=== PATIENT | male | born 1955 | race Caucasian/White ===

== ENCOUNTER 2016-09-09 16:57 | Inpatient (IN) | payer BC, OTHER ==
[~2016-09-09] VITALS: Ht 182.9 cm; Wt 94.3 kg
[~2016-09-09 16:57] MED LIST: AMLO1TAB12 PO; CALC-192 PO; FOLI-17 PO; HYDR200T PO; METH2.5T PO; OXYC-302 PO; [UNRECOGNIZED DRUG - OTHER] INJ
[2016-09-09] MEDS ORDERED: ONDANSETRON 2MG/ML, 2ML IVPush ONE (17:30)
[2016-09-09 17:43] LABS: ASPARTATE AMINO TRANSFERASE 15 U/L (15-37); BLOOD UREA NITROGEN 18 mg/dL (7-18)
[2016-09-09] MEDS ORDERED: SODIUM CHLORIDE FLUSH 10ML SYR IVF ONE (18:00)
[2016-09-09] MEDS ORDERED: MORPHINE SULFATE 4 MG/ML, 1ML ONE ×2 (18:24→20:55)
[2016-09-09] MEDS ORDERED: ONDANSETRON 2MG/ML, 2ML ONE ×2 (18:25→20:52)
[2016-09-09] MEDS: MORPHINE SULFATE 4 MG/ML, 1ML IVPush PRN ×2 (18:27→20:58)
[2016-09-09] MEDS ORDERED: OMNIPAQUE 350 MG/ML, 100ML BOTTLE ONE (20:50)
[2016-09-09] MEDS ORDERED: OMEG1CAP23 PO (21:30)
[2016-09-09] MEDS ORDERED: ATOR40TA PO (21:30)
[2016-09-09] MEDS ORDERED: ASPI-496 PO (21:30)
[2016-09-09] MEDS ORDERED: CHOL2000 PO (21:30)
[2016-09-09] MEDS ORDERED: GLYB2.5T2 PO (21:30)
[2016-09-09] MEDS ORDERED: METF100010 PO (21:30)
[2016-09-09] MEDS ORDERED: MELA3TAB37 PO (21:30)
[2016-09-09] MEDS ORDERED: TRAZ50TA18 PO (21:30)
[2016-09-09] MEDS ORDERED: SODIUM CHLORIDE 0.9% 1,000 ML IV ONE (21:42)
[2016-09-09] MEDS ORDERED: SODIUM CHLORIDE FLUSH 10ML SYR IVF PRN (22:00)
[2016-09-09] MEDS: SODIUM CHLORIDE 0.9% 1,000 ML IV SCH (22:53)
[2016-09-09] MEDS ORDERED: BISACODYL 10 MG SUPP PR PRN (23:00)
[2016-09-09] MEDS ORDERED: ENBREL 50 MG INJ SCH (23:00)
[2016-09-09] MEDS ORDERED: ONDANSETRON 2MG/ML, 2ML IVPush PRN (23:00)
[2016-09-09] MEDS ORDERED: NICOTINE 14MG/24 HR PATCH.TD24 TD SCH (23:00)
[2016-09-09 23:11] VITALS: BP 127/73
[2016-09-09] MEDS: HEPARIN 5,000 UNITS/ML, 1ML SQ SCH (23:40)
[2016-09-10] MEDS: morphine SULFATE 10 MG/ML, 1ML IVPush PRN ×3 (00:03→07:12)
[2016-09-10 04:10] VITALS: BP 122/76
[2016-09-10 05:08] LABS: ASPARTATE AMINO TRANSFERASE 14 U/L (15-37); BLOOD UREA NITROGEN 14 mg/dL (7-18)
[2016-09-10] MEDS: INSULIN ASPART 100 UNITS/ML, PEN SQ-INSULIN SCH ×3 (06:00→12:00)
[2016-09-10] MEDS: SODIUM CHLORIDE 0.9% 1,000 ML IV SCH ×2 (06:06→12:40)
[2016-09-10 06:41] VITALS: BP 99/61
[2016-09-10] MEDS: HEPARIN 5,000 UNITS/ML, 1ML SQ SCH ×2 (07:14→14:42)
[2016-09-10] MEDS ORDERED: HYDROcodone/APAP 5/325 TABLET PO PRN (09:00)
[2016-09-10 14:09] VITALS: BP 111/57
== END 2016-09-10 17:15 | disposition home or self-care (01) | DRG 439 ==
LOC: ED 21:17 → EDIP 21:42 → 3NE 22:57
PROVIDERS: ADMIT Internal Medicine; ATTEND Internal Medicine
DX: K85.90 Acute pancreatitis without necrosis or infection, unspecified (principal); K86.3 Pseudocyst of pancreas; I31.9 Disease of pericardium, unspecified; M06.9 Rheumatoid arthritis, unspecified; E11.9 Type 2 diabetes mellitus without complications; I10 Essential (primary) hypertension; G47.33 Obstructive sleep apnea (adult) (pediatric); J44.9 Chronic obstructive pulmonary disease, unspecified; R16.1 Splenomegaly, not elsewhere classified; D73.5 Infarction of spleen; F10.21 Alcohol dependence, in remission; F17.210 Nicotine dependence, cigarettes, uncomplicated; Z79.82 Long term (current) use of aspirin; Z79.899 Other long term (current) drug therapy; Z82.49 Family history of ischemic heart disease and other diseases of the circulatory system; Z79.84 Long term (current) use of oral hypoglycemic drugs; Z83.3 Family history of diabetes mellitus
CPT/HCPCS: 36415; 74177; 76700; 80053; 80061; 82962; 83690; 85025; 93005; 96374; 96375; 96376; J1644; J2405; Q9967; J2270; J7030

== ENCOUNTER 2016-09-30 10:03 | Emergency (ER) | payer BC ==
[~2016-09-30] VITALS: Ht 180.3 cm; Wt 91.0 kg
[~2016-09-30 10:03] MED LIST changes: +ASPI-496 PO; +ATOR40TA PO; +CHOL2000 PO; +GLYB2.5T2 PO; +MELA3TAB37 PO; +METF100010 PO; +OMEG1CAP23 PO; +TRAZ50TA18 PO
[2016-09-30] MEDS ORDERED: ONDANSETRON 2MG/ML, 2ML IVPush ONE (11:00)
[2016-09-30] MEDS ORDERED: SODIUM CHLORIDE FLUSH 10ML SYR IVF ONE (11:00)
[2016-09-30] MEDS ORDERED: SODIUM CHLORIDE 0.9% 1,000ML IVBOLUS ONE (11:00)
[2016-09-30] MEDS ORDERED: ONDANSETRON 2MG/ML, 2ML ONE (11:09)
[2016-09-30] MEDS ORDERED: HYDROmorphone 1 MG/ML, 1ML ONE ×2 (11:09→12:45)
[2016-09-30] MEDS: HYDROmorphone 1 MG/ML, 1ML IVPush PRN ×2 (11:22→12:50)
[2016-09-30 11:28] LABS: ASPARTATE AMINO TRANSFERASE 18 U/L (15-37); BLOOD UREA NITROGEN 27 mg/dL (7-18)
[2016-09-30] MEDS ORDERED: OMNIPAQUE 350 MG/ML, 100ML BOTTLE ONE (12:10)
[2016-09-30 13:18] VITALS: BP 125/73
== END 2016-09-30 13:39 | disposition home or self-care (01) ==
LOC: ED 10:28
DX: K85.90 Acute pancreatitis without necrosis or infection, unspecified (principal); K86.3 Pseudocyst of pancreas; J44.9 Chronic obstructive pulmonary disease, unspecified; E11.9 Type 2 diabetes mellitus without complications; E78.5 Hyperlipidemia, unspecified; E87.1 Hypo-osmolality and hyponatremia; M06.9 Rheumatoid arthritis, unspecified; Z87.891 Personal history of nicotine dependence
CPT/HCPCS: 36415; 74177; 80053; 83690; 85025; 85610; 93005; 96361; 96374; 96375; 96376; 99285; J1170; J2405; J7030; Q9967

== ENCOUNTER → 2016-10-14 | Outpatient (CLI) | payer BC ==
[~2016-10-14] MED LIST changes: +5-HY100C PO; +CETI-158 PO; +GABA PO; +GLUT500T3 PO; +IBUP-1 PO; +KETO10DR5 EACHEYE; +TRYP500T PO
[2016-10-14 09:42] LABS: BLOOD UREA NITROGEN 19 mg/dL (7-18)
[2016-10-14 09:46] LABS: ASPARTATE AMINO TRANSFERASE 16 U/L (15-37)
== END | disposition home or self-care (01) ==
LOC: STAR 08:16
PROVIDERS: ATTEND Internal Medicine Gastroenterology
DX: Z01.818 Encounter for other preprocedural examination (principal); K85.90 Acute pancreatitis without necrosis or infection, unspecified; K86.3 Pseudocyst of pancreas; K86.2 Cyst of pancreas
CPT/HCPCS: 36415; 80053

== ENCOUNTER 2016-10-22 06:27 | Day surgery (SDC) | payer BC ==
[~2016-10-22] VITALS: Ht 180.3 cm; Wt 88.6 kg
[~2016-10-22 06:27] MED LIST changes: -5-HY100C PO; +5-HY100C3 PO; -IBUP-1 PO; +IBUP-11 PO; -MELA3TAB37 PO; +MELA3TAB62 PO
[2016-10-22] MEDS ORDERED: LIDOCAINE 1%, 2ML ONE (07:16)
[2016-10-22 07:20] VITALS: BP 113/72
[2016-10-22] MEDS ORDERED: LACTATED RINGERS 1,000 ML IV SCH (07:32)
[2016-10-22] MEDS ORDERED: LIDOCAINE 1%, 2ML SQ PRN (08:00)
[2016-10-22] MEDS ORDERED: PIPERACILLIN/TAZO/PMX 3.375GM 50 ML ONE (08:05)
[2016-10-22] MEDS ORDERED: CHLORHEXIDINE MOUTHWASH 15 ML UDC ONE (08:07)
[2016-10-22] MEDS ORDERED: FENTANYL PF 100 MCG/2ML ONE (08:22)
[2016-10-22] MEDS ORDERED: MIDAZOLAM 1 MG/ML, 2ML ONE (08:29)
[2016-10-22] MEDS ORDERED: SUCCINYLCHOLINE 20 MG/ML, 10ML ONE (08:37)
[2016-10-22] MEDS ORDERED: DEXAMETHASONE 4 MG/ML, 1ML ONE (08:37)
[2016-10-22] MEDS ORDERED: ONDANSETRON 2MG/ML, 2ML ONE (08:37)
[2016-10-22] MEDS ORDERED: PROPOFOL 10 MG/ML, 20ML ONE ×2 (08:37)
== END 2016-10-22 11:30 ==
LOC: OUT 06:27
PROVIDERS: ATTEND Internal Medicine Gastroenterology
DX: K85.90 Acute pancreatitis without necrosis or infection, unspecified (principal); K86.1 Other chronic pancreatitis; K86.2 Cyst of pancreas; K44.9 Diaphragmatic hernia without obstruction or gangrene; J44.9 Chronic obstructive pulmonary disease, unspecified; I10 Essential (primary) hypertension; Z87.39 Personal history of other diseases of the musculoskeletal system and connective tissue; Z98.890 Other specified postprocedural states; Z79.82 Long term (current) use of aspirin; Z72.89 Other problems related to lifestyle; Z87.891 Personal history of nicotine dependence
CPT/HCPCS: 43239; 43242; 82962; 88172; 88173; 88305; 88307; J0330; J1100; J2250; J2405; J2543; J2704; J3010; J3490; J7120

== ENCOUNTER 2016-10-26 09:59 | Emergency (ER) | payer BC ==
[~2016-10-26] VITALS: Ht 180.3 cm; Wt 89.0 kg
[2016-10-26] MEDS ORDERED: SODIUM CHLORIDE 0.9% 1,000 ML IV ONE (10:24)
[2016-10-26] MEDS ORDERED: SODIUM CHLORIDE FLUSH 10ML SYR IVF ONE (10:30)
[2016-10-26] MEDS ORDERED: ONDANSETRON 2MG/ML, 2ML IVPush ONE (10:30)
[2016-10-26] MEDS ORDERED: HYDROmorphone 1 MG/ML, 1ML IVPush PRN (10:30)
[2016-10-26 10:44] LABS: HEMATOCRIT 46.2 % (39.2-51.8); HEMOGLOBIN 15.2 g/dL (13.7-18.0); WHITE BLOOD COUNT 10.3 x10^3/uL (3.4-10)
[2016-10-26 10:57] LABS: ASPARTATE AMINO TRANSFERASE 13 U/L (15-37); BLOOD UREA NITROGEN 18 mg/dL (7-18)
[2016-10-26] MEDS ORDERED: ONDANSETRON 2MG/ML, 2ML ONE (11:04)
[2016-10-26] MEDS ORDERED: HYDROmorphone 1 MG/ML, 1ML ONE (11:04)
[2016-10-26 12:14] VITALS: BP 123/74
[2016-10-27] MEDS ORDERED: OXYC1TAB7 PO (15:00)
== END 2016-10-26 13:03 | disposition home or self-care (01) ==
LOC: ED 10:23
DX: R10.33 Periumbilical pain (principal); K85.90 Acute pancreatitis without necrosis or infection, unspecified; E11.9 Type 2 diabetes mellitus without complications; E78.5 Hyperlipidemia, unspecified; J44.9 Chronic obstructive pulmonary disease, unspecified; M06.9 Rheumatoid arthritis, unspecified
CPT/HCPCS: 36415; 74020; 80053; 83690; 85025; 85610; 85730; 96361; 96374; 96375; 99285; J1170; J2405; J7030

== ENCOUNTER 2016-10-27 11:34 | Inpatient (IN) | payer BC ==
[~2016-10-27] VITALS: Ht 180.3 cm; Wt 98.2 kg
[2016-10-27] MEDS: LACTATED RINGERS 1,000 ML IV SCH ×3 (01:43→23:20)
[2016-10-27] MEDS ORDERED: HYDROmorphone 1 MG/ML, 1ML ONE ×3 (12:11→14:52)
[2016-10-27] MEDS ORDERED: ONDANSETRON 2MG/ML, 2ML ONE (12:12)
[2016-10-27] MEDS: HYDROmorphone 1 MG/ML, 1ML IVPush PRN ×2 (12:19→12:46)
[2016-10-27] MEDS ORDERED: SODIUM CHLORIDE FLUSH 10ML SYR IVF ONE (12:30)
[2016-10-27] MEDS ORDERED: ONDANSETRON 2MG/ML, 2ML IVPush ONE (12:30)
[2016-10-27] MEDS ORDERED: SODIUM CHLORIDE 0.9% 1,000ML IVBOLUS ONE (12:30)
[2016-10-27 12:39] LABS: HEMATOCRIT 42.7 % (39.2-51.8); WHITE BLOOD COUNT 9.9 x10^3/uL (3.4-10)
[2016-10-27 13:11] LABS: ASPARTATE AMINO TRANSFERASE 11 U/L (15-37); BLOOD UREA NITROGEN 14 mg/dL (7-18)
[2016-10-27] MEDS ORDERED: OMNIPAQUE 350 MG/ML, 100ML BOTTLE ONE (13:56)
[2016-10-27] MEDS ORDERED: HYDROmorphone 1 MG/ML, 1ML IV STA (14:47)
[2016-10-27] MEDS ORDERED: OXYC1TAB7 PO (15:00)
[2016-10-27] MEDS ORDERED: BISACODYL 10 MG SUPP PR PRN (15:30)
[2016-10-27] MEDS ORDERED: LABETALOL 5MG/ML, 20ML IVPush PRN (15:30)
[2016-10-27] MEDS ORDERED: morphine SULFATE 10 MG/ML, 1ML ONE (16:30)
[2016-10-27] MEDS: morphine SULFATE 10 MG/ML, 1ML IVPush PRN ×2 (16:35→20:27)
[2016-10-27 17:24] VITALS: BP 141/76
[2016-10-27 19:47] VITALS: BP 145/80
[2016-10-27] MEDS: NICOTINE 14MG/24 HR PATCH.TD24 TD SCH (22:00)
[2016-10-28] MEDS: morphine SULFATE 10 MG/ML, 1ML IVPush PRN ×8 (00:20→23:11)
[2016-10-28 07:30] VITALS: BP 112/71
[2016-10-28 08:19] LABS: ASPARTATE AMINO TRANSFERASE 11 U/L (15-37); BLOOD UREA NITROGEN 9 mg/dL (7-18)
[2016-10-28 08:24] LABS: HEMATOCRIT 42.9 % (39.2-51.8); HEMOGLOBIN 14.1 g/dL (13.7-18.0); WHITE BLOOD COUNT 10.5 x10^3/uL (3.4-10)
[2016-10-28] MEDS: LACTATED RINGERS 1,000 ML IV SCH ×2 (09:57→17:03)
[2016-10-28] MEDS: KETOROLAC 30 MG/1 ML IVPush SCH ×2 (11:47→18:25)
[2016-10-28 13:07] VITALS: BP 107/66
[2016-10-28] MEDS: ENOXAPARIN 40 MG/0.4 ML SQ SCH (13:54)
[2016-10-28 20:10] VITALS: BP 119/68
[2016-10-28] MEDS: NICOTINE 14MG/24 HR PATCH.TD24 TD SCH (20:10)
[2016-10-29] MEDS: KETOROLAC 30 MG/1 ML IVPush SCH ×4 (00:22→17:35)
[2016-10-29] MEDS: LACTATED RINGERS 1,000 ML IV SCH ×4 (00:22→21:06)
[2016-10-29] MEDS ORDERED: DEXTROSE 4 GM TAB.CHEW PO PRN (00:30)
[2016-10-29] MEDS ORDERED: DEXTROSE 50%, 50ML SYRINGE IVPush PRN (00:30)
[2016-10-29] MEDS ORDERED: GLUCAGON 1 MG IM PRN (00:30)
[2016-10-29 02:21] VITALS: BP 114/59
[2016-10-29] MEDS: morphine SULFATE 10 MG/ML, 1ML IVPush PRN ×7 (04:01→22:46)
[2016-10-29 04:45] LABS: HEMATOCRIT 40.3 % (39.2-51.8); HEMOGLOBIN 13.1 g/dL (13.7-18.0); WHITE BLOOD COUNT 5.7 x10^3/uL (3.4-10)
[2016-10-29 04:59] LABS: BLOOD UREA NITROGEN 14 mg/dL (7-18)
[2016-10-29] MEDS: SODIUM CHLORIDE FLUSH 10ML SYR IVF SCH ×2 (07:58→19:47)
[2016-10-29 08:30] VITALS: BP 124/67
[2016-10-29 12:35] VITALS: BP 136/75
[2016-10-29] MEDS: ENOXAPARIN 40 MG/0.4 ML SQ SCH (13:13)
[2016-10-29] MEDS ORDERED: GADOBUTROL 10 MMOL/10 ML VIAL ONE (13:34)
[2016-10-29] MEDS: NICOTINE 14MG/24 HR PATCH.TD24 TD SCH (19:46)
[2016-10-29 20:22] VITALS: BP 127/70
[2016-10-29] MEDS: TEMAZEPAM 15 MG CAPSULE PO PRN (21:07)
[2016-10-30] MEDS: KETOROLAC 30 MG/1 ML IVPush SCH ×4 (00:26→17:18)
[2016-10-30 01:24] VITALS: BP 116/51
[2016-10-30] MEDS: morphine SULFATE 10 MG/ML, 1ML IVPush PRN ×4 (02:07→11:26)
[2016-10-30] MEDS: LACTATED RINGERS 1,000 ML IV SCH ×3 (04:00→17:25)
[2016-10-30 05:50] LABS: HEMATOCRIT 43.1 % (39.2-51.8); HEMOGLOBIN 14.1 g/dL (13.7-18.0); WHITE BLOOD COUNT 7.8 x10^3/uL (3.4-10)
[2016-10-30 06:00] LABS: BLOOD UREA NITROGEN 8 mg/dL (7-18)
[2016-10-30] MEDS: SODIUM CHLORIDE FLUSH 10ML SYR IVF SCH ×2 (08:14→21:16)
[2016-10-30 08:17] VITALS: BP 131/73
[2016-10-30 11:42] LABS: ASPARTATE AMINO TRANSFERASE 10 U/L (15-37); BLOOD UREA NITROGEN 6 mg/dL (7-18)
[2016-10-30] MEDS: HYDROmorphone 1 MG/ML, 1ML IV PRN ×4 (12:16→22:27)
[2016-10-30 14:14] VITALS: BP 128/75
[2016-10-30] MEDS: ENOXAPARIN 40 MG/0.4 ML SQ SCH (16:00)
[2016-10-30] MEDS: ONDANSETRON 2MG/ML, 2ML IVPush PRN (17:30)
[2016-10-30 19:57] VITALS: BP 121/70
[2016-10-30] MEDS ORDERED: HYDROmorphone 1 MG/ML, 1ML IV PRN (21:00)
[2016-10-30] MEDS: NICOTINE 14MG/24 HR PATCH.TD24 TD SCH (21:15)
[2016-10-30] MEDS: TEMAZEPAM 15 MG CAPSULE PO PRN (22:27)
[2016-10-31] MEDS: KETOROLAC 30 MG/1 ML IVPush SCH ×4 (00:10→18:43)
[2016-10-31 01:46] VITALS: BP 150/80
[2016-10-31] MEDS: HYDROmorphone 1 MG/ML, 1ML IV PRN ×6 (02:08→21:03)
[2016-10-31] MEDS: ONDANSETRON 2MG/ML, 2ML IVPush PRN (05:16)
[2016-10-31 06:56] VITALS: BP 126/70
[2016-10-31] MEDS: LACTATED RINGERS 1,000 ML IV SCH ×4 (08:00→23:00)
[2016-10-31] MEDS: SODIUM CHLORIDE FLUSH 10ML SYR IVF SCH ×2 (08:04→20:57)
[2016-10-31] MEDS ORDERED: MAALOX/HYOSCYAMINE/LIDOCAINE 45 ML BTL PO ONE (09:00)
[2016-10-31] MEDS: PANTOPRAZOLE 40 MG IV IVPush SCH ×2 (09:52→20:58)
[2016-10-31 13:12] VITALS: BP 112/69
[2016-10-31] MEDS: ENOXAPARIN 40 MG/0.4 ML SQ SCH (16:41)
[2016-10-31] MEDS ORDERED: OMNIPAQUE 350 MG/ML, 100ML BOTTLE ONE (17:42)
[2016-10-31 20:30] VITALS: BP 108/61
[2016-10-31] MEDS: NICOTINE 14MG/24 HR PATCH.TD24 TD SCH (20:56)
[2016-10-31] MEDS: TEMAZEPAM 15 MG CAPSULE PO PRN (21:09)
[2016-11-01] MEDS: HYDROmorphone 1 MG/ML, 1ML IV PRN ×4 (00:05→10:11)
[2016-11-01] MEDS: KETOROLAC 30 MG/1 ML IVPush SCH ×2 (00:10→06:34)
[2016-11-01 02:30] VITALS: BP 110/71
[2016-11-01] MEDS: LACTATED RINGERS 1,000 ML IV SCH ×3 (05:40→20:09)
[2016-11-01 06:04] LABS: HEMATOCRIT 37.3 % (39.2-51.8); HEMOGLOBIN 12.2 g/dL (13.7-18.0); WHITE BLOOD COUNT 4.5 x10^3/uL (3.4-10)
[2016-11-01 06:10] LABS: ASPARTATE AMINO TRANSFERASE 10 U/L (15-37); BLOOD UREA NITROGEN 10 mg/dL (7-18)
[2016-11-01 08:55] VITALS: BP 115/72
[2016-11-01] MEDS: PANTOPRAZOLE 40 MG IV IVPush SCH ×2 (10:11→20:08)
[2016-11-01] MEDS: SODIUM CHLORIDE FLUSH 10ML SYR IVF SCH ×2 (10:12→20:08)
[2016-11-01] MEDS ORDERED: OXYcodone/APAP 5/325MG TABLET PO PRN (12:30)
[2016-11-01] MEDS: ENOXAPARIN 40 MG/0.4 ML SQ SCH (15:00)
[2016-11-01 15:54] VITALS: BP 144/79
[2016-11-01 19:04] VITALS: BP 146/84
[2016-11-01] MEDS: NICOTINE 14MG/24 HR PATCH.TD24 TD SCH (20:07)
[2016-11-02] MEDS: LACTATED RINGERS 1,000 ML IV SCH ×2 (02:50→11:19)
[2016-11-02 03:26] VITALS: BP 136/81
[2016-11-02 07:53] VITALS: BP 134/78
[2016-11-02] MEDS: PANTOPRAZOLE 40 MG IV IVPush SCH (08:51)
[2016-11-02] MEDS: SODIUM CHLORIDE FLUSH 10ML SYR IVF SCH (08:51)
[2016-11-02 13:15] VITALS: BP 148/78
[2016-11-02] MEDS ORDERED: LACTATED RINGERS 1,000 ML IV SCH (15:30)
== END 2016-11-02 16:00 | disposition home or self-care (01) | DRG 439 ==
LOC: ED 12:14 → EDIP 14:43 → 4WST 17:23
PROVIDERS: ADMIT Hospitalist; ATTEND Hospitalist
DX: K85.90 Acute pancreatitis without necrosis or infection, unspecified (principal); E44.0 Moderate protein-calorie malnutrition; K76.6 Portal hypertension; R18.8 Other ascites; E11.649 Type 2 diabetes mellitus with hypoglycemia without coma; N28.1 Cyst of kidney, acquired; J98.11 Atelectasis; K86.3 Pseudocyst of pancreas; K76.0 Fatty (change of) liver, not elsewhere classified; Z68.30 Body mass index [BMI] 30.0-30.9, adult; E78.5 Hyperlipidemia, unspecified; F10.21 Alcohol dependence, in remission; F17.200 Nicotine dependence, unspecified, uncomplicated; I10 Essential (primary) hypertension; J44.9 Chronic obstructive pulmonary disease, unspecified; K86.1 Other chronic pancreatitis; M06.9 Rheumatoid arthritis, unspecified; Z79.84 Long term (current) use of oral hypoglycemic drugs; Z82.49 Family history of ischemic heart disease and other diseases of the circulatory system; Z83.3 Family history of diabetes mellitus
CPT/HCPCS: 36415; 74177; 74178; 74183; 76700; 80048; 80053; 80061; 82962; 83690; 85025; 85610; 85651; 85730; 86140; 93005; 96361; 96374; 96375; 96376; A9585; J1170; J1650; J1885; J2405; Q9967; C9113; J2270; J7030; J7120

== ENCOUNTER → 2016-12-24 | Outpatient (CLI) | payer BC ==
[~2016-12-24] MED LIST changes: +OXYC1TAB7 PO
== END | disposition home or self-care (01) ==
LOC: CFH 08:54
PROVIDERS: ATTEND Internal Medicine Gastroenterology
DX: K85.90 Acute pancreatitis without necrosis or infection, unspecified (principal); K86.1 Other chronic pancreatitis; K86.3 Pseudocyst of pancreas; Z12.11 Encounter for screening for malignant neoplasm of colon
CPT/HCPCS: 74000

== ENCOUNTER 2017-12-03 18:16 | Emergency (ER) | payer BC ==
[~2017-12-03] VITALS: Ht 182.9 cm; Wt 84.5 kg
[~2017-12-03 18:16] MED LIST changes: -HYDR200T PO; +HYDR200T72 PO; +TRAZ-136 PO; -TRAZ50TA18 PO
[2017-12-03] MEDS ORDERED: TRAM50TA2 PO (19:02)
[2017-12-03] MEDS ORDERED: PSYL0.5215 PO (19:02)
[2017-12-03] MEDS ORDERED: ETAN50CA IM (19:02)
[2017-12-03] MEDS ORDERED: TRAZ-136 PO (19:02)
[2017-12-03] MEDS ORDERED: GLYB2.5T2 PO (19:02)
[2017-12-03] MEDS ORDERED: LIPA1CAP45 PO (19:02)
[2017-12-03] MEDS ORDERED: METF500T17 PO (19:02)
[2017-12-03] MEDS ORDERED: MORPHINE SULFATE 4 MG/ML, 1ML ONE ×2 (19:23→20:48)
[2017-12-03] MEDS ORDERED: ONDANSETRON ODT 4 MG ONE (19:25)
[2017-12-03] MEDS ORDERED: SODIUM CHLORIDE FLUSH 10ML SYR IVF ONE (19:30)
[2017-12-03] MEDS ORDERED: ONDANSETRON ODT 4 MG PO ONE (19:30)
[2017-12-03] MEDS ORDERED: SODIUM CHLORIDE 0.9% 1,000ML IVBOLUS ONE (19:30)
[2017-12-03] MEDS: MORPHINE SULFATE 4 MG/ML, 1ML IVPush PRN ×2 (19:31→20:53)
[2017-12-03 19:36] LABS: BASOPHILS # (AUTO) 0.16 x10^3/uL (0-0.1); BASOPHILS % (AUTO) 2 % (0-1); EOSINOPHILS # (AUTO) 0.05 x10^3/uL (0-0.4); EOSINOPHILS % (AUTO) 1 % (1-7); LYMPHOCYTES # (AUTO) 1.84 x10^3/uL (1-3.4); LYMPHOCYTES % (AUTO) 18 % (22-44); MD NO; MEAN CORPUSCULAR HEMOGLOBIN 32.5 pg (27.5-34.5); MEAN CORPUSCULAR HGB CONC 33.8 g/dL (33.2-36.2); MEAN CORPUSCULAR VOLUME 96.4 fL (81-97); MEAN PLATELET VOLUME 8.4 fL (7.4-10.4); MONOCYTES # (AUTO) 0.78 x10^3/uL (0.2-0.8); MONOCYTES % (AUTO) 8 % (2-9); NEUTROPHILS # (AUTO) 7.44 x10^3/uL (1.8-6.8); NEUTROPHILS % (AUTO) 72 % (42-75); PLATELET COUNT 199 x10^3/uL (130-400); RED CELL DISTRIBUTION WIDTH 14.5 % (9.4-14.8)
[2017-12-03 19:48] LABS: ALBUMIN 3.8 g/dL (3.4-5.0); ANION GAP 10 mmol/L (5-15); CALCIUM 9.2 mg/dL (8.5-10.1); CHLORIDE 107 mmol/L (98-107); CREATININE 0.72 mg/dL (0.7-1.3)
[2017-12-03 19:50] LABS: ALANINE AMINOTRANSFERASE 22 U/L (12-78); ALKALINE PHOSPHATASE 96 U/L (45-117); BILIRUBIN,TOTAL 0.3 mg/dL (0.2-1.0); TOTAL PROTEIN 8.3 g/dL (6.4-8.2)
[2017-12-03 20:26] LABS: CULTURE INDICATED? NO; MICROSCOPIC NOT IND
[2017-12-03 20:55] VITALS: BP 125/61
== END 2017-12-03 21:36 | disposition home or self-care (01) ==
LOC: ED 21:26
DX: G89.29 Other chronic pain (principal); R10.12 Left upper quadrant pain; E78.5 Hyperlipidemia, unspecified; E11.9 Type 2 diabetes mellitus without complications; J44.9 Chronic obstructive pulmonary disease, unspecified; M06.9 Rheumatoid arthritis, unspecified
CPT/HCPCS: 36415; 80053; 81003; 83690; 85025; 93005; 96374; 96376; 99285; J7030; Q0162

== ENCOUNTER 2017-12-13 02:18 | Emergency (ER) | payer BC ==
[~2017-12-13] VITALS: Ht 182.9 cm; Wt 86.2 kg
[~2017-12-13 02:18] MED LIST changes: +ETAN50CA IM; +LIPA1CAP45 PO; +METF500T17 PO; +PSYL0.5215 PO; +TRAM50TA2 PO
[2017-12-13 02:23] VITALS: BP 104/63
[2017-12-13] MEDS ORDERED: ONDANSETRON ODT 4 MG ONE (02:51)
[2017-12-13] MEDS ORDERED: HYDROmorphone 2 MG/ML, 1ML ONE (02:52)
[2017-12-13] MEDS ORDERED: ONDANSETRON ODT 4 MG PO ONE (03:00)
[2017-12-13] MEDS ORDERED: HYDROmorphone 2 MG/ML, 1ML IM ONE (03:00)
[2017-12-13 03:01] LABS: BASOPHILS # (AUTO) 0.02 x10^3/uL (0-0.1); BASOPHILS % (AUTO) 0 % (0-1); EOSINOPHILS # (AUTO) 0.08 x10^3/uL (0-0.4); EOSINOPHILS % (AUTO) 1 % (1-7); LYMPHOCYTES # (AUTO) 1.72 x10^3/uL (1-3.4); LYMPHOCYTES % (AUTO) 12 % (22-44); MD NO; MEAN CORPUSCULAR HEMOGLOBIN 32.7 pg (27.5-34.5); MEAN CORPUSCULAR HGB CONC 34.2 g/dL (33.2-36.2); MEAN CORPUSCULAR VOLUME 95.7 fL (81-97); MEAN PLATELET VOLUME 8.5 fL (7.4-10.4); MONOCYTES # (AUTO) 0.73 x10^3/uL (0.2-0.8); MONOCYTES % (AUTO) 5 % (2-9); NEUTROPHILS # (AUTO) 12.42 x10^3/uL (1.8-6.8); NEUTROPHILS % (AUTO) 83 % (42-75); PLATELET COUNT 166 x10^3/uL (130-400); RED BLOOD COUNT 4.87 x10^6/uL (4.38-5.82); RED CELL DISTRIBUTION WIDTH 14.2 % (9.4-14.8)
[2017-12-13 03:11] LABS: ALANINE AMINOTRANSFERASE 18 U/L (12-78); ALBUMIN 3.6 g/dL (3.4-5.0); ANION GAP 9 mmol/L (5-15); CALCIUM 8.6 mg/dL (8.5-10.1); CHLORIDE 104 mmol/L (98-107); CREATININE 0.72 mg/dL (0.7-1.3)
[2017-12-13 03:14] LABS: ALKALINE PHOSPHATASE 85 U/L (45-117); BILIRUBIN,TOTAL 0.4 mg/dL (0.2-1.0); TOTAL PROTEIN 7.4 g/dL (6.4-8.2)
== END 2017-12-13 03:50 | disposition home or self-care (01) ==
LOC: ED 03:33
DX: G89.29 Other chronic pain (principal); R10.12 Left upper quadrant pain; E78.5 Hyperlipidemia, unspecified; E11.9 Type 2 diabetes mellitus without complications; J44.9 Chronic obstructive pulmonary disease, unspecified; M06.9 Rheumatoid arthritis, unspecified
CPT/HCPCS: 36415; 80053; 83690; 85025; 96372; 99284; J1170; Q0162

== ENCOUNTER → 2018-02-11 | Outpatient (CLI) | payer BC ==
[~2018-02-11] MED LIST changes: +ACET-1600 PO; +B COMPLEX PO; -ETAN50CA IM; +ETAN50CA INJ; +OMNIPAQUE 350 MG/ML, 100ML BOTTLE ONE; +POLY17PO5 PO; -TRAZ-136 PO; +TRAZ50TA66 PO; +[UNRECOGNIZED DRUG - OTHER] PO
== END | disposition home or self-care (01) ==
LOC: CFH 08:12
PROVIDERS: ATTEND Internal Medicine Gastroenterology
DX: K86.3 Pseudocyst of pancreas (principal); I82.891 Chronic embolism and thrombosis of other specified veins; K59.00 Constipation, unspecified; R16.1 Splenomegaly, not elsewhere classified
CPT/HCPCS: 74177; Q9967

== ENCOUNTER 2018-02-17 06:23 | Day surgery (SDC) | payer BC ==
[~2018-02-17] VITALS: Ht 182.9 cm; Wt 84.1 kg
[~2018-02-17 06:23] MED LIST changes: -OMNIPAQUE 350 MG/ML, 100ML BOTTLE ONE
[2018-02-17] MEDS ORDERED: LACTATED RINGERS 1,000 ML IV SCH (07:04)
[2018-02-17 07:27] VITALS: BP 100/66
[2018-02-17] MEDS ORDERED: CHLORHEXIDINE 15 ML UDC ONE (08:30)
[2018-02-17] MEDS ORDERED: PIPERACILLIN/TAZO/PMX 3.375GM 50 ML ONE (08:31)
[2018-02-17] MEDS ORDERED: LIDOCAINE-MPF 2% ,5ML ONE (09:01)
[2018-02-17] MEDS ORDERED: LIDOCAINE 4%, 4 ML SYR/CANN TP ONE (09:01)
[2018-02-17] MEDS ORDERED: FENTANYL PF 100 MCG/2ML ONE ×3 (09:01→10:31)
[2018-02-17] MEDS ORDERED: DEXAMETHASONE 4 MG/ML, 1ML ONE (09:43)
[2018-02-17] MEDS ORDERED: NEOSTIGMINE 1 MG/ML, 10ML ONE (09:43)
[2018-02-17] MEDS ORDERED: CEFAZOLIN 1,000 MG ONE (09:43)
[2018-02-17] MEDS ORDERED: GLYCOPYRROLATE 0.2MG/1ML, 5ML ONE (09:43)
[2018-02-17] MEDS ORDERED: PROPOFOL 10 MG/ML, 20ML ONE (09:43)
[2018-02-17] MEDS ORDERED: SUCCINYLCHOLINE 20 MG/ML, 10ML ONE (09:43)
[2018-02-17] MEDS ORDERED: ONDANSETRON 2MG/ML, 2ML ONE (09:43)
[2018-02-17] MEDS ORDERED: ROCURONIUM 10MG/ML,5ML ONE (09:43)
[2018-02-17] MEDS ORDERED: HYDROmorphone 2 MG/ML, 1ML IVPush PRN (10:00)
[2018-02-17] MEDS ORDERED: ONDANSETRON ODT 8 MG PO PRN (10:00)
[2018-02-17] MEDS ORDERED: ONDANSETRON 2MG/ML, 2ML IV PRN (10:00)
[2018-02-17] MEDS ORDERED: DIAZEPAM 5 MG/ML, 2ML IVPush PRN (10:00)
[2018-02-17] MEDS ORDERED: ACETAMINOPHEN 325 MG TABLET PO PRN (10:00)
[2018-02-17] MEDS ORDERED: OXYcodone 5 MG/5 ML ORAL.SOL UDC PO PRN (10:00)
[2018-02-17] MEDS ORDERED: OXYcodone 5 MG/5 ML ORAL.SOL UDC ONE (10:31)
[2018-02-17] MEDS ORDERED: ONDANSETRON ODT 8 MG ONE (10:31)
[2018-02-17] MEDS ORDERED: ACETAMINOPHEN 325 MG TABLET ONE (10:32)
[2018-02-17] MEDS: FENTANYL PF 100 MCG/2ML IV PRN ×2 (10:36→10:41)
== END 2018-02-17 12:05 | disposition home or self-care (01) ==
LOC: OUT 06:23
PROVIDERS: ATTEND Internal Medicine Gastroenterology
DX: K86.2 Cyst of pancreas (principal); J44.9 Chronic obstructive pulmonary disease, unspecified; I10 Essential (primary) hypertension; E78.00 Pure hypercholesterolemia, unspecified; Z87.891 Personal history of nicotine dependence; Z98.890 Other specified postprocedural states; Z79.899 Other long term (current) drug therapy
CPT/HCPCS: 43237; 82962; C1874; J0330; J0690; J1100; J2405; J2543; J2704; J2710; J3010; J3490; J7120; Q0162

== ENCOUNTER 2018-02-24 07:02 | Day surgery (SDC) | payer BC ==
[~2018-02-24] VITALS: Ht 182.9 cm; Wt 82.2 kg
[2018-02-24] MEDS ORDERED: LACTATED RINGERS 1,000 ML IV SCH (07:42)
[2018-02-24 07:43] VITALS: BP 98/64
[2018-02-24] MEDS ORDERED: PLEASE ENTER HEIGHT AND WEIGHT MC SCH (08:00)
[2018-02-24] MEDS ORDERED: ONDANSETRON 2MG/ML, 2ML IV PRN (09:30)
[2018-02-24] MEDS ORDERED: OXYcodone 5 MG/5 ML ORAL.SOL UDC PO PRN (09:30)
[2018-02-24] MEDS ORDERED: FENTANYL PF 100 MCG/2ML IV PRN (09:30)
[2018-02-24] MEDS ORDERED: ACETAMINOPHEN 325 MG TABLET PO PRN (09:30)
[2018-02-24] MEDS ORDERED: PROMETHAZINE 25 MG/ML, 1ML IV PRN (09:30)
[2018-02-24] MEDS ORDERED: ONDANSETRON ODT 8 MG PO PRN (09:30)
[2018-02-24] MEDS ORDERED: FENTANYL PF 100 MCG/2ML ONE (09:31)
[2018-02-24] MEDS ORDERED: NEOSTIGMINE 1 MG/ML, 10ML ONE (10:05)
[2018-02-24] MEDS ORDERED: CEFAZOLIN 1,000 MG ONE (10:05)
[2018-02-24] MEDS ORDERED: ONDANSETRON 2MG/ML, 2ML ONE (10:05)
[2018-02-24] MEDS ORDERED: SUCCINYLCHOLINE 20 MG/ML, 10ML ONE (10:05)
[2018-02-24] MEDS ORDERED: ROCURONIUM 10MG/ML,5ML ONE (10:05)
[2018-02-24] MEDS ORDERED: DEXAMETHASONE 4 MG/ML, 1ML ONE (10:05)
[2018-02-24] MEDS ORDERED: GLYCOPYRROLATE 0.2MG/1ML, 5ML ONE (10:05)
[2018-02-24] MEDS ORDERED: PROPOFOL 10 MG/ML, 20ML ONE (10:05)
== END 2018-02-24 11:20 | disposition home or self-care (01) ==
LOC: OUT 07:02
PROVIDERS: ATTEND Internal Medicine Gastroenterology
DX: K85.81 Other acute pancreatitis with uninfected necrosis (principal); K86.3 Pseudocyst of pancreas; K86.89 Other specified diseases of pancreas; I10 Essential (primary) hypertension; E11.9 Type 2 diabetes mellitus without complications; J44.9 Chronic obstructive pulmonary disease, unspecified; E78.00 Pure hypercholesterolemia, unspecified; Z87.891 Personal history of nicotine dependence; Z79.899 Other long term (current) drug therapy; Z98.890 Other specified postprocedural states; Z79.84 Long term (current) use of oral hypoglycemic drugs
CPT/HCPCS: 43239; 43247; 43266; 82962; C1725; J0330; J0690; J1100; J2405; J2704; J2710; J3010; J3490; J7120

== ENCOUNTER 2018-03-11 05:19 | Day surgery (SDC) | payer BC ==
[2018-03-11] MEDS ORDERED: LACTATED RINGERS 1,000 ML IV SCH (06:50)
[2018-03-11] MEDS ORDERED: PROPOFOL 10 MG/ML, 50ML ONE (07:22)
[2018-03-11] MEDS ORDERED: KETOROLAC 30 MG/1 ML IV PRN (08:00)
[2018-03-11] MEDS ORDERED: ALBUTEROL SULFATE 2.5 MG/3 ML NPPB PRN (08:00)
[2018-03-11] MEDS ORDERED: HYDROmorphone 2 MG/ML, 1ML IVPush PRN (08:00)
[2018-03-11] MEDS ORDERED: DIAZEPAM 5 MG/ML, 2ML IVPush PRN (08:00)
[2018-03-11] MEDS ORDERED: OXYcodone 5 MG/5 ML ORAL.SOL UDC PO PRN (08:00)
[2018-03-11] MEDS ORDERED: LABETALOL 5MG/ML, 20ML IV PRN (08:00)
[2018-03-11] MEDS ORDERED: ACETAMINOPHEN 325 MG TABLET PO PRN (08:00)
[2018-03-11] MEDS ORDERED: MEPERIDINE/PF 25MG/0.5ML IVPush PRN (08:00)
[2018-03-11] MEDS ORDERED: PROMETHAZINE 25 MG/ML, 1ML IV PRN (08:00)
[2018-03-11] MEDS ORDERED: FENTANYL PF 100 MCG/2ML IV PRN (08:00)
[2018-03-11] MEDS ORDERED: hydrALAzine 20 MG/ML, 1ML IV PRN (08:00)
[2018-03-11] MEDS ORDERED: PLEASE ENTER HEIGHT AND WEIGHT MC SCH (09:00)
== END 2018-03-11 09:30 | disposition home or self-care (01) ==
LOC: OUT 05:19
PROVIDERS: ATTEND Internal Medicine Gastroenterology
DX: K86.3 Pseudocyst of pancreas (principal); J44.9 Chronic obstructive pulmonary disease, unspecified; E11.9 Type 2 diabetes mellitus without complications; E78.00 Pure hypercholesterolemia, unspecified; Z87.891 Personal history of nicotine dependence; Z79.84 Long term (current) use of oral hypoglycemic drugs
CPT/HCPCS: 43235; 82962; J2704

== ENCOUNTER 2018-03-11 10:51 | Emergency (ER) | payer BC ==
[~2018-03-11] VITALS: Ht 182.9 cm; Wt 84.5 kg
[2018-03-11 11:45] LABS: MEAN CORPUSCULAR HEMOGLOBIN 32.2 pg (27.5-34.5); MEAN CORPUSCULAR HGB CONC 33.8 g/dL (33.2-36.2); MEAN CORPUSCULAR VOLUME 95.4 fL (81-97); MEAN PLATELET VOLUME 8.7 fL (7.4-10.4); PLATELET COUNT 140 x10^3/uL (130-400); RED BLOOD COUNT 4.77 x10^6/uL (4.38-5.82)
[2018-03-11] MEDS ORDERED: IBUPROFEN 600 MG TABLET ONE (11:47)
[2018-03-11 11:54] LABS: RAPID INFLUENZA A Negative (Negative); RAPID INFLUENZA B Negative (Negative)
--- NOTE | 2018-03-11 11:54 | NUR ---
patient arrives to the ER with after dr serna called and told them to come to er. this morning he had a pancretic stent cleaning. the initial stent was placed feb 17 by same doctor. this is his second cleaning. he then went home and felt weak and chills. he came to er and was found to have core temp of 102.9, tachycardic, 92% on room air, aox4. 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 he states he had pancreatitis and quit drinking, and since he lost 120 lbs and subsequently got off bp medications/high cholesterol medications. gowned. 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 iv initiated, labs sent, fluids started and medicated. trying to obtain urine, unable at this time. i ajith one set cultures with iv start and lab here drawing other.
[2018-03-11] MEDS ORDERED: IBUPROFEN 600 MG TABLET PO ONE (12:00)
[2018-03-11] MEDS ORDERED: SODIUM CHLORIDE 0.9% 1,000ML IVBOLUS ONE (12:00)
[2018-03-11 12:05] LABS: CHLORIDE 107 mmol/L (98-107)
[2018-03-11 12:09] LABS: BASOPHILS # (AUTO) 0.01 x10^3/uL (0-0.1); BASOPHILS % (AUTO) 0 % (0-1); EOSINOPHILS # (AUTO) 0.05 x10^3/uL (0-0.4); EOSINOPHILS % (AUTO) 0 % (1-7); LYMPHOCYTES # (AUTO) 0.78 x10^3/uL (1-3.4); LYMPHOCYTES % (AUTO) 6 % (22-44); MD SCAN; MONOCYTES # (AUTO) 0.04 x10^3/uL (0.2-0.8); MONOCYTES % (AUTO) 0 % (2-9); NEUTROPHILS % (AUTO) 93 % (42-75)
--- NOTE | 2018-03-11 12:20 | NUR ---
patient is in radiology. attempt to get urine, he can not pee now. fluids running
[2018-03-11 12:28] LABS: ALBUMIN 3.6 g/dL (3.4-5.0); ANION GAP 6 mmol/L (5-15); CALCIUM 8.3 mg/dL (8.5-10.1)
[2018-03-11 12:39] LABS: ALANINE AMINOTRANSFERASE 16 U/L (12-78); ALKALINE PHOSPHATASE 68 U/L (45-117); BILIRUBIN,TOTAL 0.8 mg/dL (0.2-1.0); TOTAL PROTEIN 6.6 g/dL (6.4-8.2)
--- NOTE | 2018-03-11 12:56 | NUR ---
urine sent. patient in bed awaiting ct
[2018-03-11 13:05] LABS: CULTURE INDICATED? NO; MICROSCOPIC NOT IND
[2018-03-11] MEDS ORDERED: OMNIPAQUE 350 MG/ML, 100ML BOTTLE ONE (13:50)
[2018-03-11] MEDS ORDERED: PIPERACILLIN/TAZO/PMX 3.375GM 50 ML IV ONE (14:00)
--- NOTE | 2018-03-11 14:00 | NUR ---
patient returned from ct scan and abx
[2018-03-11] MEDS ORDERED: PIPERACILLIN/TAZO/PMX 3.375GM 50 ML ONE (14:02)
[2018-03-11 14:41] VITALS: BP 118/78
--- NOTE | 2018-03-11 14:42 | NUR ---
went over discharge instructiosn at length. patient shows understanding. left with driving states feels improved.
== END 2018-03-11 14:53 | disposition home or self-care (01) ==
LOC: ED 12:49
DX: R65.10 Systemic inflammatory response syndrome (SIRS) of non-infectious origin without acute organ dysfunction (principal); R50.81 Fever presenting with conditions classified elsewhere; M79.661 Pain in right lower leg; M79.662 Pain in left lower leg; E11.9 Type 2 diabetes mellitus without complications; J44.9 Chronic obstructive pulmonary disease, unspecified; M06.9 Rheumatoid arthritis, unspecified; E78.5 Hyperlipidemia, unspecified
CPT/HCPCS: 36415; 74022; 74177; 80053; 81003; 83605; 83690; 84145; 84443; 85025; 87040; 87400; 96365; 99284; J2543; J7030; Q9967

== ENCOUNTER → 2018-04-08 | Outpatient (CLI) | payer BC ==
[~2018-04-08] MED LIST changes: +OMNIPAQUE 350 MG/ML, 100ML BOTTLE ONE
== END | disposition home or self-care (01) ==
LOC: CFH 10:34
PROVIDERS: ATTEND Internal Medicine Gastroenterology
DX: K86.3 Pseudocyst of pancreas (principal); I70.8 Atherosclerosis of other arteries
CPT/HCPCS: 74177; Q9967

== ENCOUNTER 2018-04-28 06:25 | Day surgery (SDC) | payer BC ==
[~2018-04-28] VITALS: Ht 182.9 cm; Wt 89.4 kg
[~2018-04-28 06:25] MED LIST changes: -OMNIPAQUE 350 MG/ML, 100ML BOTTLE ONE
[2018-04-28] MEDS ORDERED: LACTATED RINGERS 1,000 ML IV SCH (07:08)
[2018-04-28] MEDS ORDERED: MIDAZOLAM 1 MG/ML, 2ML IV PRN (07:30)
[2018-04-28] MEDS ORDERED: ALBUTEROL/IPRATROPIUM 2.5MG/0.5MG, 3 ML NPPB PRN (07:30)
[2018-04-28] MEDS ORDERED: PROMETHAZINE 25 MG/ML, 1ML IV PRN (07:30)
[2018-04-28] MEDS ORDERED: OXYcodone 5 MG/5 ML ORAL.SOL UDC PO PRN (07:30)
[2018-04-28] MEDS ORDERED: hydrALAzine 20 MG/ML, 1ML IV PRN (07:30)
[2018-04-28] MEDS ORDERED: ACETAMINOPHEN 325 MG TABLET PO PRN (07:30)
[2018-04-28] MEDS ORDERED: FENTANYL PF 100 MCG/2ML IV PRN (07:30)
[2018-04-28] MEDS ORDERED: ONDANSETRON 2MG/ML, 2ML IV PRN (07:30)
[2018-04-28] MEDS ORDERED: PIPERACILLIN/TAZO/PMX 3.375GM 50 ML ONE (07:35)
[2018-04-28 07:37] VITALS: BP 105/67
[2018-04-28] MEDS ORDERED: VARE1TAB21 PO (07:42)
[2018-04-28] MEDS ORDERED: PROPOFOL 10 MG/ML, 20ML ONE (08:02)
== END 2018-04-28 09:35 | disposition home or self-care (01) ==
LOC: OUT 06:25
PROVIDERS: ATTEND Internal Medicine Gastroenterology
DX: K31.89 Other diseases of stomach and duodenum (principal); J44.9 Chronic obstructive pulmonary disease, unspecified; E11.9 Type 2 diabetes mellitus without complications; Z79.899 Other long term (current) drug therapy; Z79.84 Long term (current) use of oral hypoglycemic drugs
CPT/HCPCS: 43247; 82962; J2543; J2704; J7120

== ENCOUNTER 2018-10-10 08:35 | Outpatient (CLI) | payer MEDICARE | END 2018-10-10 23:59 | disposition home or self-care (01) | LOC: CFH 08:35 | PROVIDERS: ATTEND Internal Medicine Cardiovascular Disease | DX: I07.1 Rheumatic tricuspid insufficiency (principal); E11.9 Type 2 diabetes mellitus without complications; I31.9 Disease of pericardium, unspecified | CPT/HCPCS: 0399T; 93306 ==

== ENCOUNTER → 2019-03-02 | Outpatient (CLI) | payer MEDICARE ==
[~2019-03-02] MED LIST changes: +VARE1TAB21 PO
[2019-03-02 08:35] LABS: BASOPHILS # (AUTO) 0.01 x10^3/uL (0-0.1); BASOPHILS % (AUTO) 0 % (0-1); EOSINOPHILS # (AUTO) 0.07 x10^3/uL (0-0.4); EOSINOPHILS % (AUTO) 1 % (1-7); LYMPHOCYTES # (AUTO) 1.35 x10^3/uL (1-3.4); LYMPHOCYTES % (AUTO) 15 % (22-44); MD NO; MEAN CORPUSCULAR HEMOGLOBIN 32.1 pg (27.5-34.5); MEAN CORPUSCULAR HGB CONC 33.2 g/dL (33.2-36.2); MEAN CORPUSCULAR VOLUME 96.4 fL (81-97); MEAN PLATELET VOLUME 7.2 fL (7.4-10.4); MONOCYTES # (AUTO) 0.33 x10^3/uL (0.2-0.8); MONOCYTES % (AUTO) 4 % (2-9); NEUTROPHILS # (AUTO) 7.46 x10^3/uL (1.8-6.8); NEUTROPHILS % (AUTO) 81 % (42-75); PLATELET COUNT 192 x10^3/uL (130-400); RED BLOOD COUNT 4.74 x10^6/uL (4.38-5.82); RED CELL DISTRIBUTION WIDTH 14.6 % (9.4-14.8)
[2019-03-02 08:39] LABS: ALANINE AMINOTRANSFERASE 21 U/L (12-78); ALBUMIN 3.7 g/dL (3.4-5.0); ANION GAP 5 mmol/L (5-15); C-REACTIVE PROTEIN, QUANT 0.71 mg/dL (0.02-0.49); CALCIUM 8.3 mg/dL (8.5-10.1); CHLORIDE 103 mmol/L (98-107); CREATININE 0.86 mg/dL (0.7-1.3)
[2019-03-02 08:42] LABS: ALKALINE PHOSPHATASE 67 U/L (45-117); BILIRUBIN,TOTAL 0.3 mg/dL (0.2-1.0); HCT (SEDRATE) 45.7 % (39.2-51.8); TOTAL PROTEIN 7.3 g/dL (6.4-8.2)
== END | disposition home or self-care (01) ==
LOC: LAB 08:07
PROVIDERS: ATTEND Internal Medicine Rheumatology
DX: M06.9 Rheumatoid arthritis, unspecified (principal); Z79.899 Other long term (current) drug therapy; E11.65 Type 2 diabetes mellitus with hyperglycemia
CPT/HCPCS: 36415; 80053; 83036; 85025; 85651; 86140; 86480; 86803; 87340

== ENCOUNTER 2020-05-06 07:30 | Outpatient (CLI) | payer MEDICARE ==
[~2020-05-06 07:30] MED LIST changes: -FOLI-17 PO; +FOLI1TAB32 PO; -OXYC-302 PO; +OXYC1TAB14 PO
== END 2020-05-06 23:59 | disposition home or self-care (01) ==
LOC: CFH 07:30
DX: Z12.2 Encounter for screening for malignant neoplasm of respiratory organs (principal); Z13.820 Encounter for screening for osteoporosis; R91.8 Other nonspecific abnormal finding of lung field; Z87.891 Personal history of nicotine dependence; Z79.52 Long term (current) use of systemic steroids
CPT/HCPCS: 71271; 76706; 77080

== ENCOUNTER → 2020-10-08 | Outpatient (CLI) | payer MEDICARE ==
[2020-10-08 09:11] LABS: ALBUMIN 3.8 g/dL (3.4-5.0); ANION GAP 4 mmol/L (5-15); CALCIUM 8.9 mg/dL (8.5-10.1); CHLORIDE 104 mmol/L (98-107)
[2020-10-08 09:13] LABS: BASOPHILS % (AUTO) 1 % (0-1); EOSINOPHILS % (AUTO) 1 % (1-7); LYMPHOCYTES % (AUTO) 15 % (22-44); MEAN CORPUSCULAR HEMOGLOBIN 33.1 pg (27.5-34.5); MEAN PLATELET VOLUME 7.7 fL (7.4-10.4); MONOCYTES % (AUTO) 6 % (2-9); NEUTROPHILS % (AUTO) 78 % (42-75); PLATELET COUNT 168 x10^3/uL (130-400); RED BLOOD COUNT 4.67 x10^6/uL (4.38-5.82); RED CELL DISTRIBUTION WIDTH 14.8 % (9.4-14.8)
[2020-10-08 09:20] LABS: ALANINE AMINOTRANSFERASE 35 U/L (12-78); ALKALINE PHOSPHATASE 86 U/L (45-117); BILIRUBIN,TOTAL 0.3 mg/dL (0.2-1.0); CHOL/HDL RATIO 4.5; CHOLESTEROL, TOTAL 195 mg/dL (140-239); CREATININE 0.78 mg/dL (0.7-1.3); HDL CHOL % 22 % (26-37); HDL CHOLESTEROL (DIRECT) 43 mg/dL (40-60); LDL CHOLESTEROL,CALCULATED 135 mg/dL (54-169); TOTAL PROTEIN 7.2 g/dL (6.4-8.2); TRIGLYCERIDES 85 mg/dL (50-200); VLDL CHOLESTEROL 17 mg/dL (0-25)
[2020-10-08 09:21] LABS: FREE T4 (FREE THYROXINE) 0.95 ng/dL (0.76-1.46); LDL/HDL RATIO 3.1 (0.5-3.0)
== END | disposition home or self-care (01) ==
LOC: LAB 08:43
PROVIDERS: ATTEND Internal Medicine
DX: I10 Essential (primary) hypertension (principal); E78.2 Mixed hyperlipidemia; E03.9 Hypothyroidism, unspecified; E11.42 Type 2 diabetes mellitus with diabetic polyneuropathy; E61.1 Iron deficiency
CPT/HCPCS: 36415; 80053; 80061; 82043; 82570; 82728; 83036; 84439; 84443; 85025